=== PATIENT | male | born 1965 | race Caucasian/White ===

== ENCOUNTER 2020-10-18 06:22 | Day surgery (SDC) | payer OTHER ==
[~2020-10-18] VITALS: Ht 177.8 cm; Wt 114.0 kg
[~2020-10-18 06:22] MED LIST: IBUPROFEN800 MG PO; NORCO 5-325 TA1 EACH PO
[2020-10-18] MEDS ORDERED: LISINOPRIL10 MG PO (07:00)
[2020-10-18] MEDS ORDERED: ELIQUIS5 MG PO (07:02)
[2020-10-18] MEDS ORDERED: TOPROL XL 50 MG50 MG PO (07:02)
[2020-10-19 04:33] LABS: HEMOGLOBIN 9.3 gm/dl (14.0-17.5); RED BLOOD COUNT 2.91 M/UL (4.20-5.50); WHITE BLOOD COUNT 6.7 K/UL (4.5-11.0)
[2020-10-19 04:53] LABS: BUN/CREATININE RATIO 22 (0-10)
[2020-10-19] MEDS ORDERED: NORCO 5-325 TA1 EACH PO (10:33)
== END 2020-10-19 13:06 | disposition home or self-care (01) ==
LOC: OR 06:22 → M/S 14:16 → OR 10-19 13:06
PROVIDERS: Orthopaedic Surgery
PROC: 0LS30ZZ Reposition Right Upper Arm Tendon, Open Approach (ICD-10-PCS; 2020-10-18)
PROC: 0PUF0KZ Supplement Right Humeral Shaft with Nonautologous Tissue Substitute, Open Approach (ICD-10-PCS; 2020-10-18)
PROC: 0PSC04Z Reposition Right Humeral Head with Internal Fixation Device, Open Approach (ICD-10-PCS; principal; 2020-10-18 08:15)
DX: S42.211A Unspecified displaced fracture of surgical neck of right humerus, initial encounter for closed fracture (principal); S42.351A Displaced comminuted fracture of shaft of humerus, right arm, initial encounter for closed fracture; W01.0XXA Fall on same level from slipping, tripping and stumbling without subsequent striking against object, initial encounter; I10 Essential (primary) hypertension; F17.210 Nicotine dependence, cigarettes, uncomplicated; E66.01 Morbid (severe) obesity due to excess calories; Z68.36 Body mass index [BMI] 36.0-36.9, adult; E11.9 Type 2 diabetes mellitus without complications; I48.91 Unspecified atrial fibrillation; Z79.01 Long term (current) use of anticoagulants; Z79.899 Other long term (current) drug therapy; Z20.828 Contact with and (suspected) exposure to other viral communicable diseases
CPT/HCPCS: 36415; 73030; 73060; 76000; 80048; 82962; 85027; 93005; 94760; C1713; C1762; J0592; J0690; J1100; J2001; J2250; J2370; J2704; J2710; J2795; J3010; J3260; J3370; J7120